=== PATIENT | male | born 1960 | race Caucasian/White ===

== ENCOUNTER 2018-09-27 08:23 | Day surgery (SDC) | payer BC ==
[~2018-09-27] VITALS: Ht 180.3 cm; Wt 81.6 kg
[2018-09-27] MEDS ORDERED: NS 1,000 ML IV ONE (09:15)
[2018-09-27] MEDS ORDERED: PROPOFOL 200 MG/20 ML VIAL As Ordered ONE ×2 (09:25→09:44)
--- NOTE | 2018-09-27 09:50 | ROOR ---
Patient Name: Luis Fernando Croft Procedure Date: 09/27/2018 9:22 AM Date of : 1960 Age: 58 Room: [facility] Gender: Male Note Status: Finalized Procedure: Colonoscopy Indications: High risk colon cancer surveillance: Personal history of colonic polyps Providers: Layo LAZAR MD Referring MD: 1. No Referring Physician 1. No Referring Physician, Admin. Requesting Provider: Medicines: Monitored Anesthesia Care Complications: No immediate complications. Procedure: Pre-Anesthesia Assessment: - The heart rate, respiratory rate, oxygen saturations, blood pressure, adequacy of pulmonary ventilation, and response to care were monitored throughout the procedure. The Colonoscope was introduced through the anus and advanced to the cecum, identified by appendiceal orifice and ileocecal valve. The colonoscopy was performed without difficulty. The patient tolerated the procedure well. The quality of the bowel preparation was good. Findings: The perianal and digital rectal examinations were normal. Two sessile polyps were found in the sigmoid colon and hepatic flexure. The polyps were 4 to 5 mm in size. These polyps were removed with a cold snare. Resection and retrieval were complete. Mild sigmoid diverticulosis and small internal hemorrhoids. There was a medium-sized lipoma, in the descending colon. Impression: - Two 4 to 5 mm polyps in the sigmoid colon and at the hepatic flexure, removed with a cold snare. Resected and retrieved. - Medium-sized lipoma in the descending colon. - Mild sigmoid diverticulosis and small internal hemorrhoids. - The exam was otherwise normal to the cecum. Recommendation: - Repeat colonoscopy in 5 years for surveillance. Layo Lazar MD Layo LAZAR MD 09/27/2018 9:49:37 AM This report has been signed electronically. Number of Addenda: 0 Note Initiated On: 09/27/2018 9:22 AM Estimated Blood Loss: Estimated blood loss: none.
[2018-09-27 10:21] VITALS: BP 146/93
== END 2018-09-27 10:22 | disposition home or self-care (01) ==
LOC: M OPP 08:23
PROVIDERS: ATTEND Internal Medicine Gastroenterology
DX: Z12.11 Encounter for screening for malignant neoplasm of colon (principal); Z86.010 Personal history of colon polyps; Z80.0 Family history of malignant neoplasm of digestive organs; D12.3 Benign neoplasm of transverse colon; K63.5 Polyp of colon

== ENCOUNTER → 2019-02-12 | Outpatient (RCR) | payer BC | LOC: M PT 01-31 14:58 | PROVIDERS: ATTEND Orthopaedic Surgery Orthopaedic Trauma | DX: S82.141A Displaced bicondylar fracture of right tibia, initial encounter for closed fracture (principal) ==

== ENCOUNTER 2019-03-14 15:04 | Outpatient (RCR) | payer BC | END 2019-03-15 | LOC: M PT 15:04 | PROVIDERS: ATTEND Orthopaedic Surgery Orthopaedic Trauma | DX: S82.141A Displaced bicondylar fracture of right tibia, initial encounter for closed fracture (principal) ==

== ENCOUNTER 2019-04-01 15:15 | Outpatient (RCR) | payer BC | END 2019-04-14 | LOC: M PT 15:15 | PROVIDERS: ATTEND Orthopaedic Surgery Orthopaedic Trauma | DX: Z47.89 Encounter for other orthopedic aftercare (principal); S82.141D Displaced bicondylar fracture of right tibia, subsequent encounter for closed fracture with routine healing ==

== ENCOUNTER → 2019-04-07 | Outpatient (CLI) | payer BC ==
[2019-04-07 13:46] LABS: BASO # 0.1 10^3/uL (0.0-0.2); BASO % 1.1 % (0.0-1.0); EOS # 0.4 10^3/uL (0.0-0.5); EOS % 6.8 % (0.0-3.0); HEMATOCRIT 45.3 % (42.0-52.0); HEMOGLOBIN 15.4 g/dl (13.5-17.5); LYMPH # 1.8 10^3/uL (1.5-5.0); LYMPH % 29.1 % (24.0-44.0); MEAN CORPUSCULAR HEMOGLOBIN 29.9 pg (27.0-33.0); MONO # 0.5 10^3/uL (0.0-0.8); MONO % 7.8 % (0.0-5.0); NEUTROPHILS # 3.4 10^3/uL (1.5-8.5); NEUTROPHILS % 54.7 % (36.0-66.0); PLATELET COUNT, AUTOMATED 197 10^3/uL (150-450); RED BLOOD COUNT 5.15 10^6/uL (4.30-6.10); WHITE BLOOD COUNT 6.2 10^3/uL (4.0-10.0)
[2019-04-07 14:21] LABS: ALBUMIN 4.2 GM/DL (3.2-5.2); C REACTIVE PROTEIN QUANTITATIV < 0.30 MG/DL (0.00-0.30); CALCIUM LEVEL 9.6 MG/DL (8.8-10.2); FREE T3 3.2 PG/ML (2.2-4.0); FREE T4 0.93 NG/DL (0.76-1.46); MAGNESIUM LEVEL 2.3 MG/DL (1.8-2.4); PTH INTACT 17.9 PG/ML (18.5-88.0); TOTAL 25(OH) VITAMIN D 33.9 NG/ML (30.0-100.0); TOTAL PROTEIN 7.2 GM/DL (6.4-8.2)
[2019-04-07 14:23] LABS: ERYTHROCYTE SEDIMENTATION RATE 2 mm/hr (0-20)
== END ==
LOC: M LAB 13:00
PROVIDERS: ATTEND Orthopaedic Surgery Orthopaedic Trauma
DX: S72.141K Displaced intertrochanteric fracture of right femur, subsequent encounter for closed fracture with nonunion (principal)

== ENCOUNTER 2024-12-01 12:59 | Emergency (ER) | payer MEDICARE, OTHER ==
[~2024-12-01] VITALS: Ht 180.3 cm; Wt 75.0 kg
[2024-12-01 13:02] VITALS: TEMP 97.7
[2024-12-01] MEDS: PERCOCET 5MG/325MG TAB PO ONE (16:49)
[2024-12-01] MEDS ORDERED: METH-1165 PO (17:34)
[2024-12-01] MEDS ORDERED: MEDR4PAK PO (17:34)
[2024-12-01 17:51] VITALS: BP 178/102; O2SAT 99
== END 2024-12-01 17:52 | disposition home or self-care (01) ==
LOC: M ED 12:59
DX: S76.012A Strain of muscle, fascia and tendon of left hip, initial encounter (principal); X50.0XXA Overexertion from strenuous movement or load, initial encounter; Z79.899 Other long term (current) drug therapy; Y92.009 Unspecified place in unspecified non-institutional (private) residence as the place of occurrence of the external cause; Y93.89 Activity, other specified; Y99.9 Unspecified external cause status

== ENCOUNTER → 2024-12-01 | Outpatient (CLI) | payer OTHER ==
[~2024-12-01] MED LIST: MEDR4PAK PO; METH-1165 PO
== END ==
LOC: M WUC 10:47
PROVIDERS: ATTEND Nurse Practitioner Family
DX: M16.12 Unilateral primary osteoarthritis, left hip (principal)